=== PATIENT | female | born 1950 | race Caucasian/White ===

== ENCOUNTER 2022-12-07 04:57 | Inpatient (IN) | payer OTHER, BC ==
[2022-12-07] MEDS ORDERED: ACETAMINOPHEN 325 MG TABLET (FP) PO PRN (11:33)
[2022-12-07] MEDS ORDERED: ONDANSETRON 4 MG/2 ML VIAL IVPUSH PRN ×2 (11:33→18:14)
[2022-12-07] MEDS ORDERED: LIDOCAINE HCL/PF 2% SDV 5ML VIAL ONE (11:39)
[2022-12-07] MEDS ORDERED: MIDAZOLAM HCL 2 MG/2 ML SINGLE DOSE VIAL ONE (11:40)
[2022-12-07] MEDS ORDERED: PROPOFOL 20 ML ONE (11:40)
[2022-12-07] MEDS ORDERED: ONDANSETRON 4 MG/2 ML VIAL ONE (11:56)
[2022-12-07] MEDS ORDERED: ceFAZolin SODIUM 1 GM VIAL ONE (12:01)
[2022-12-07] MEDS ORDERED: ceFAZolin SODIUM 1 GM VIAL IVPB ONE (12:02)
[2022-12-07] MEDS ORDERED: KETOROLAC TROMETHAMINE 30 MG/1 ML VIAL ONE (12:18)
[2022-12-07] MEDS ORDERED: MEPERIDINE HCL 25 MG/ML VIAL ONE (13:26)
[2022-12-07] MEDS ORDERED: ACETAMINOPHEN 1000 MG/100 ML BAG IVPB ONE ×2 (14:00→16:18)
[2022-12-07] MEDS ORDERED: ACETAMINOPHEN INJECTION 100 ML IVPB ONE (14:01)
[2022-12-07 14:56] LABS: HEMATOCRIT 36.7 % (32.4-45.2); HEMOGLOBIN 11.9 GM/dL (10.7-15.3); MCH 27.5 pg (25.7-33.7); MCHC 32.5 g/dl (32.0-36.0); MEAN CELL VOLUME 84.6 fl (80-96); MEAN PLT VOLUME 10.3 fl (7.5-11.1); PLATELET COUNT 192 10^3/uL (134-434); RBC 4.33 M/mm3 (3.60-5.2); RDW 14.6 % (11.6-15.6)
[2022-12-07 15:03] LABS: ALBUMIN 3.1 g/dl (3.4-5.0); BLOOD UREA NITROGEN 48.9 mg/dL (7-18); CALCIUM 9.1 mg/dL (8.5-10.1)
[2022-12-07 15:07] LABS: BILIRUBIN,TOTAL 0.4 mg/dL (0.2-1); CREATININE 1.8 mg/dL (0.55-1.3)
[2022-12-07 15:08] LABS: TOT PROT 6.8 g/dl (6.4-8.2)
[2022-12-07 15:36] LABS: ANISOCYTOSIS 0; MACROCYTOSIS 0
[2022-12-07 15:59] LABS: HEMATOCRIT 32.1 % (32.4-45.2); HEMOGLOBIN 10.7 GM/dL (10.7-15.3); MCH 28.1 pg (25.7-33.7); MCHC 33.4 g/dl (32.0-36.0); MEAN CELL VOLUME 84.2 fl (80-96); MEAN PLT VOLUME 9.9 fl (7.5-11.1); PLATELET COUNT 176 10^3/uL (134-434); RBC 3.81 M/mm3 (3.60-5.2); WHITE BLOOD COUNT 2.1 K/mm3 (4.0-10.0)
[2022-12-07] MEDS ORDERED: MEPERIDINE HCL 25 MG/ML VIAL IVPUSH ONE (16:19)
[2022-12-07 16:31] LABS: ANISOCYTOSIS 0; HELMET CELLS 0; HOWELL-JOLLY BODIES 0; MACROCYTOSIS 0; OVALOCYTE 0; ROULEAU 0; SICKELED CELLS 0; TARGET CELLS 0; TEAR DROP CELLS 0; TOXIC GRANULATION 0
[2022-12-07] MEDS: LACTATED RINGERS SOLUTION 1,000 ML IV SCH (18:51)
[2022-12-07] MEDS: PIPERACILLIN/TAZOB 3.375 GM 3.375 GM in DEXTROSE 5%-WATER - 50 ML IVPB SCH (18:52)
[2022-12-07] MEDS: INSULIN SLIDING SCALE (NOVOLOG) 1 VIAL SQ SCH (21:41)
[2022-12-07] MEDS: oxyCODONE HCL 5 MG TABLET PO PRN (21:54)
[2022-12-08] MEDS ORDERED: LACTATED RINGERS SOLUTION 1,000 ML/1,000 ML INFUS.BAG IV STA (00:55)
[2022-12-08] MEDS: PIPERACILLIN/TAZOB 3.375 GM 3.375 GM in DEXTROSE 5%-WATER - 50 ML IVPB SCH (02:43)
[2022-12-08] MEDS: LACTATED RINGERS SOLUTION 1,000 ML IV SCH (02:44)
[2022-12-08] MEDS: ACETAMINOPHEN 1000 MG/100 ML BAG IVPB PRN ×2 (02:46→22:13)
[2022-12-08 04:47] LABS: EPI CELLS 7 /uL (0-25.1); HYALINE CASTS 0 /uL (0-3.1); URINE APPEARANCE TURBID; URINE BILIRUBIN NEGATIVE (NEGATIVE); URINE COLOR ORANGE; URINE GLUCOSE (UA) 2+ (NEGATIVE); URINE KETONE TRACE (NEGATIVE); URINE LEUK ESTERASE 3+ (NEGATIVE); URINE NITRITE NEGATIVE (NEGATIVE); URINE PROTEIN 2+ (NEGATIVE); URINE RBC 8895 /uL (0-23.9); URINE WBC 1131 /uL (0-25.8)
[2022-12-08] MEDS: INSULIN SLIDING SCALE (NOVOLOG) 1 VIAL SQ SCH ×4 (06:16→22:45)
[2022-12-08] MEDS: oxyCODONE HCL 5 MG TABLET PO PRN ×3 (07:39→17:09)
[2022-12-08] MEDS ORDERED: TAMSULOSIN HCL 0.4 MG CAP PO SCH (08:30)
[2022-12-08 08:39] LABS: URINE BACTERIA 7.6 /uL (0-1359)
[2022-12-08 09:31] LABS: HEMATOCRIT 29.6 % (32.4-45.2); HEMOGLOBIN 9.7 GM/dL (10.7-15.3); MCH 28.1 pg (25.7-33.7); MCHC 32.9 g/dl (32.0-36.0); MEAN CELL VOLUME 85.4 fl (80-96); MEAN PLT VOLUME 10.5 fl (7.5-11.1); PLATELET COUNT 117 10^3/uL (134-434); RBC 3.47 M/mm3 (3.60-5.2); RDW 14.6 % (11.6-15.6); WHITE BLOOD COUNT 26.2 K/mm3 (4.0-10.0)
[2022-12-08] MEDS ORDERED: PIPERACILLIN/TAZOB 4.5 GM 4.5 GM in DEXTROSE 5%-WATER - 50 ML IVPB SCH (10:00)
[2022-12-08] MEDS ORDERED: CEFEPIME HCL/D5W 1 GM/50 ML BAG IVPB SCH (10:00)
[2022-12-08 10:09] LABS: CALCIUM 7.9 mg/dL (8.5-10.1)
[2022-12-08 10:10] LABS: BLOOD UREA NITROGEN 62.5 mg/dL (7-18); MAGNESIUM 1.2 mg/dL (1.8-2.4)
[2022-12-08 10:13] LABS: CREATININE 3.1 mg/dL (0.55-1.3); PHOSPHOROUS 3.1 mg/dL (2.5-4.9)
[2022-12-08 10:14] LABS: BILIRUBIN,TOTAL 0.7 mg/dL (0.2-1); TOT PROT 5.5 g/dl (6.4-8.2)
[2022-12-08 10:15] LABS: ANISOCYTOSIS 0; MACROCYTOSIS 0
[2022-12-08 10:21] LABS: ALBUMIN 2.4 g/dl (3.4-5.0)
[2022-12-08] MEDS: metoPROLOL SUCCINATE 25 MG TAB.SR.24H (FP) PO SCH ×2 (10:55→11:48)
[2022-12-08] MEDS: TICAGRELOR 90 MG TABLET PO SCH ×2 (10:55→23:44)
[2022-12-08] MEDS: ASPIRIN COATED 81 MG TABLET.EC PO SCH (10:55)
[2022-12-08] MEDS: LOSARTAN POTASSIUM 25 MG TABLET PO SCH ×2 (10:55→11:48)
[2022-12-08] MEDS: amLODIPine BESYLATE 10 MG TABLET (FP) PO SCH ×2 (10:55→11:48)
[2022-12-08] MEDS ORDERED: PIPERACILLIN/TAZOB 4.5 GM 4.5 GM in DEXTROSE 5%-WATER 100 ML IVPB SCH ×2 (10:55→11:00)
[2022-12-08] MEDS ORDERED: SODIUM CHLORIDE 1,000 ML IV STA ×2 (11:16→15:34)
[2022-12-08 11:32] LABS: HEMOGLOBIN 10.6 GM/dL (10.7-15.3); MCH 27.2 pg (25.7-33.7); MEAN CELL VOLUME 84.9 fl (80-96); MEAN PLT VOLUME 10.8 fl (7.5-11.1); PLATELET COUNT 131 10^3/uL (134-434); RBC 3.88 M/mm3 (3.60-5.2); RDW 14.9 % (11.6-15.6)
[2022-12-08] MEDS ORDERED: SODIUM CHLORIDE 1,000 ML IV SCH (11:45)
[2022-12-08] MEDS ORDERED: MAGNESIUM SULFATE IN WATER 2 GM/50 ML IVPB IVPB ONE ×2 (12:00→15:45)
[2022-12-08 12:19] LABS: ANISOCYTOSIS 0; MACROCYTOSIS 0
[2022-12-08] MEDS: PIPERACILLIN/TAZOB 2.25 GM 2.25 GM in DEXTROSE 5%-WATER - 50 ML IVPB SCH ×3 (15:24→22:13)
[2022-12-08] MEDS: POLYETHYLENE GLYCOL (HEALTHYLAX) 3350 17 GM PACKET PO SCH (15:44)
[2022-12-08] MEDS ORDERED: metoPROLOL SUCCINATE 25 MG TAB.SR.24H (FP) PO SCH (15:50)
[2022-12-08] MEDS ORDERED: LACTATED RINGERS SOLUTION 1,000 ML/1,000 ML INFUS.BAG IV SCH (17:00)
[2022-12-08] MEDS: LIDOCAINE 5% TOPICAL PATCH TP SCH (17:09)
[2022-12-08] MEDS ORDERED: LACTATED RINGERS SOLUTION 1000 ML INFUS.BAG IV ONE (19:48)
[2022-12-08 21:56] LABS: CALCIUM 7.2 mg/dL (8.5-10.1)
[2022-12-08 21:57] LABS: ALBUMIN 2.2 g/dl (3.4-5.0); BLOOD UREA NITROGEN 69.1 mg/dL (7-18)
[2022-12-08 22:00] LABS: CREATININE 3.4 mg/dL (0.55-1.3)
[2022-12-08 22:02] LABS: TOT PROT 5.4 g/dl (6.4-8.2)
[2022-12-08] MEDS: SODIUM BICARBONATE 650 MG TABLET PO SCH (22:13)
[2022-12-08] MEDS: MELATONIN 5 MG TABLETS PO PRN (22:13)
[2022-12-08] MEDS: LIDOCAINE PATCH REMOVAL MC SCH (23:45)
[2022-12-09] MEDS: PIPERACILLIN/TAZOB 2.25 GM 2.25 GM in DEXTROSE 5%-WATER - 50 ML IVPB SCH ×2 (02:34→10:20)
[2022-12-09] MEDS: INSULIN SLIDING SCALE (NOVOLOG) 1 VIAL SQ SCH ×4 (06:35→23:00)
[2022-12-09] MEDS: PIPERACILLIN/TAZOB 3.375 GM 3.375 GM in DEXTROSE 5%-WATER - 50 ML IVPB SCH ×2 (07:10→07:12)
[2022-12-09 09:06] LABS: HEMATOCRIT 27.2 % (32.4-45.2); HEMOGLOBIN 9.1 GM/dL (10.7-15.3); MCH 27.9 pg (25.7-33.7); MCHC 33.5 g/dl (32.0-36.0); MEAN CELL VOLUME 83.4 fl (80-96); PLATELET COUNT 91 10^3/uL (134-434); RBC 3.26 M/mm3 (3.60-5.2); RDW 14.5 % (11.6-15.6)
[2022-12-09 09:31] LABS: LACTIC ACID 2.8 mmol/L (0.4-2.0)
[2022-12-09 09:36] LABS: WHITE BLOOD COUNT 31.3 K/mm3 (4.0-10.0)
[2022-12-09 09:37] LABS: BLOOD UREA NITROGEN 80.4 mg/dL (7-18); CALCIUM 7.7 mg/dL (8.5-10.1)
[2022-12-09 09:38] LABS: ALBUMIN 2.2 g/dl (3.4-5.0)
[2022-12-09 09:40] LABS: CREATININE 3.7 mg/dL (0.55-1.3)
[2022-12-09 09:42] LABS: BILIRUBIN,TOTAL 1.2 mg/dL (0.2-1); TOT PROT 5.2 g/dl (6.4-8.2)
[2022-12-09] MEDS: LIDOCAINE 5% TOPICAL PATCH TP SCH (10:18)
[2022-12-09] MEDS: ACETAMINOPHEN 1000 MG/100 ML BAG IVPB PRN ×2 (10:19→21:10)
[2022-12-09] MEDS: TICAGRELOR 90 MG TABLET PO SCH (10:21)
[2022-12-09] MEDS: ASPIRIN COATED 81 MG TABLET.EC PO SCH (10:21)
[2022-12-09] MEDS: POLYETHYLENE GLYCOL (HEALTHYLAX) 3350 17 GM PACKET PO SCH (10:21)
[2022-12-09] MEDS: SODIUM BICARBONATE 650 MG TABLET PO SCH ×2 (10:22→22:51)
[2022-12-09] MEDS: SODIUM CHLORIDE 1,000 ML IV SCH ×2 (10:30→21:17)
[2022-12-09] MEDS ORDERED: MEROPENEM 1 GM in DEXTROSE 5%-WATER 100 ML IVPB ONE (10:52)
[2022-12-09 11:19] LABS: ANISOCYTOSIS 0; HELMET CELLS 0; HOWELL-JOLLY BODIES 0; MACROCYTOSIS 0; OVALOCYTE 0; ROULEAU 0; SICKELED CELLS 0; TARGET CELLS 0; TEAR DROP CELLS 0; TOXIC GRANULATION 0
[2022-12-09] MEDS ORDERED: INSULIN (NOVOLOG) ASPART 100 UNITS/ML 10ML VIAL ONE (22:38)
[2022-12-09] MEDS: LIDOCAINE PATCH REMOVAL MC SCH (22:51)
[2022-12-09] MEDS: MELATONIN 5 MG TABLETS PO PRN (22:51)
[2022-12-09] MEDS: TICAGRELOR 60 MG TABLET PO SCH (22:51)
[2022-12-10] MEDS: ACETAMINOPHEN 1000 MG/100 ML BAG IVPB PRN ×2 (05:49→16:45)
[2022-12-10] MEDS: INSULIN SLIDING SCALE (NOVOLOG) 1 VIAL SQ SCH ×4 (06:17→22:19)
[2022-12-10 08:54] LABS: HEMATOCRIT 27.1 % (32.4-45.2); HEMOGLOBIN 8.9 GM/dL (10.7-15.3); MCH 27.3 pg (25.7-33.7); MCHC 32.8 g/dl (32.0-36.0); MEAN CELL VOLUME 83.3 fl (80-96); MEAN PLT VOLUME 10.8 fl (7.5-11.1); PLATELET COUNT 83 10^3/uL (134-434); RBC 3.25 M/mm3 (3.60-5.2); RDW 15.1 % (11.6-15.6)
[2022-12-10 09:11] LABS: WHITE BLOOD COUNT 39.1 K/mm3 (4.0-10.0)
[2022-12-10] MEDS: LIDOCAINE 5% TOPICAL PATCH TP SCH (09:14)
[2022-12-10] MEDS: SODIUM CHLORIDE 1,000 ML IV SCH ×2 (09:15→16:48)
[2022-12-10] MEDS: TICAGRELOR 60 MG TABLET PO SCH ×2 (09:15→22:14)
[2022-12-10] MEDS: ASPIRIN COATED 81 MG TABLET.EC PO SCH (09:15)
[2022-12-10] MEDS: SODIUM BICARBONATE 650 MG TABLET PO SCH ×2 (09:15→22:14)
[2022-12-10 09:31] LABS: BLOOD UREA NITROGEN 82.1 mg/dL (7-18)
[2022-12-10 09:34] LABS: CREATININE 3.4 mg/dL (0.55-1.3)
[2022-12-10 09:35] LABS: BILIRUBIN,TOTAL 0.9 mg/dL (0.2-1); TOT PROT 4.8 g/dl (6.4-8.2)
[2022-12-10] MEDS ORDERED: TICAGRELOR 90 MG TABLET PO SCH ×2 (10:00)
[2022-12-10] MEDS ORDERED: MEROPENEM 1 GM in DEXTROSE 5%-WATER 100 ML IVPB SCH (11:00)
[2022-12-10 11:02] LABS: ANISOCYTOSIS 0; HELMET CELLS 0; HOWELL-JOLLY BODIES 0; MACROCYTOSIS 0; OVALOCYTE 0; ROULEAU 0; SICKELED CELLS 0; TARGET CELLS 0; TEAR DROP CELLS 0; TOXIC GRANULATION 0
[2022-12-10] MEDS: CEFTRIAXONE 2 GM in DEXTROSE 5%-WATER 100 ML IVPB SCH (17:24)
[2022-12-10] MEDS ORDERED: INSULIN (NOVOLOG) ASPART 100 UNITS/ML 10ML VIAL ONE (17:31)
[2022-12-10] MEDS ORDERED: INSULIN (LEVEMIR) 100 UNITS/ML UNITS SQ ONE (17:31)
[2022-12-10] MEDS ORDERED: SODIUM CHLORIDE NASAL SPRAY 44 ML BOTTLE NS PRN (21:27)
[2022-12-10] MEDS: LIDOCAINE PATCH REMOVAL MC SCH (22:14)
[2022-12-11] MEDS: SODIUM CHLORIDE 1,000 ML IV SCH ×2 (06:27→08:30)
[2022-12-11] MEDS: INSULIN SLIDING SCALE (NOVOLOG) 1 VIAL SQ SCH ×4 (06:29→21:53)
[2022-12-11] MEDS ORDERED: SODIUM CHLORIDE 1,000 ML IV SCH (09:10)
[2022-12-11 09:24] LABS: HEMATOCRIT 31.2 % (32.4-45.2); HEMOGLOBIN 10.1 GM/dL (10.7-15.3); MCH 27.3 pg (25.7-33.7); MCHC 32.2 g/dl (32.0-36.0); MEAN CELL VOLUME 84.6 fl (80-96); MEAN PLT VOLUME 11.5 fl (7.5-11.1); PLATELET COUNT 90 10^3/uL (134-434); RBC 3.69 M/mm3 (3.60-5.2); RDW 15.5 % (11.6-15.6)
[2022-12-11] MEDS: ASPIRIN COATED 81 MG TABLET.EC PO SCH (09:45)
[2022-12-11] MEDS: TICAGRELOR 60 MG TABLET PO SCH ×2 (09:46→21:47)
[2022-12-11] MEDS: SODIUM BICARBONATE 650 MG TABLET PO SCH ×2 (09:46→21:47)
[2022-12-11] MEDS: LIDOCAINE 5% TOPICAL PATCH TP SCH (09:46)
[2022-12-11 09:51] LABS: ALBUMIN 2.2 g/dl (3.4-5.0); CALCIUM 8.5 mg/dL (8.5-10.1)
[2022-12-11 09:53] LABS: WHITE BLOOD COUNT 33.6 K/mm3 (4.0-10.0)
[2022-12-11 09:56] LABS: BILIRUBIN,TOTAL 0.5 mg/dL (0.2-1); TOT PROT 5.4 g/dl (6.4-8.2)
[2022-12-11 10:02] LABS: BLOOD UREA NITROGEN 72.1 mg/dL (7-18); CREATININE 2.7 mg/dL (0.55-1.3)
[2022-12-11 10:48] LABS: ANISOCYTOSIS 0; MACROCYTOSIS 0
[2022-12-11] MEDS: CEFTRIAXONE 2 GM in DEXTROSE 5%-WATER 100 ML IVPB SCH (17:17)
[2022-12-11] MEDS ORDERED: INSULIN (LEVEMIR) 100 UNITS/ML UNITS SQ ONE (19:01)
[2022-12-11] MEDS ORDERED: INSULIN (NOVOLOG) ASPART 100 UNITS/ML 10ML VIAL ONE (19:01)
[2022-12-11] MEDS: LIDOCAINE PATCH REMOVAL MC SCH (21:47)
[2022-12-11] MEDS: MELATONIN 5 MG TABLETS PO PRN (21:55)
[2022-12-12 05:20] LABS: KAPPA/LAMBDA RATIO, UR 3.09 (1.83-14.26)
[2022-12-12] MEDS: INSULIN SLIDING SCALE (NOVOLOG) 1 VIAL SQ SCH ×4 (06:49→22:53)
[2022-12-12 08:56] LABS: HEMATOCRIT 30.5 % (32.4-45.2); HEMOGLOBIN 9.8 GM/dL (10.7-15.3); MCH 27.1 pg (25.7-33.7); MCHC 32.2 g/dl (32.0-36.0); MEAN CELL VOLUME 84.1 fl (80-96); MEAN PLT VOLUME 11.6 fl (7.5-11.1); PLATELET COUNT 93 10^3/uL (134-434); RBC 3.63 M/mm3 (3.60-5.2); RDW 15.4 % (11.6-15.6); WHITE BLOOD COUNT 21.1 K/mm3 (4.0-10.0)
[2022-12-12 09:22] LABS: CALCIUM 8.7 mg/dL (8.5-10.1)
[2022-12-12 09:23] LABS: ALBUMIN 2.2 g/dl (3.4-5.0); BLOOD UREA NITROGEN 57.8 mg/dL (7-18); MAGNESIUM 2.1 mg/dL (1.8-2.4)
[2022-12-12 09:26] LABS: CREATININE 2.1 mg/dL (0.55-1.3); PHOSPHOROUS 2.7 mg/dL (2.5-4.9)
[2022-12-12 09:27] LABS: TOT PROT 5.4 g/dl (6.4-8.2)
[2022-12-12 09:28] LABS: BILIRUBIN,TOTAL 0.3 mg/dL (0.2-1)
[2022-12-12] MEDS: ASPIRIN COATED 81 MG TABLET.EC PO SCH (09:48)
[2022-12-12] MEDS: SODIUM BICARBONATE 650 MG TABLET PO SCH (09:48)
[2022-12-12] MEDS: LIDOCAINE 5% TOPICAL PATCH TP SCH (09:49)
[2022-12-12] MEDS: TICAGRELOR 60 MG TABLET PO SCH ×2 (10:01→22:49)
[2022-12-12 10:19] LABS: ANISOCYTOSIS 0; MACROCYTOSIS 0
[2022-12-12] MEDS ORDERED: MAG HYDROX/AL HYDROX/SIMETH 30 ML UNIT-DOSE CUP PO PRN (10:46)
[2022-12-12] MEDS: PANTOPRAZOLE 20 MG TABLET PO SCH (11:39)
[2022-12-12] MEDS: amLODIPine BESYLATE 10 MG TABLET (FP) PO SCH (13:34)
[2022-12-12] MEDS: metoPROLOL SUCCINATE 25 MG TAB.SR.24H (FP) PO SCH (13:34)
[2022-12-12 15:07] LABS: TOTAL PROTEIN, URINE 85.3 mg/dL (Not Estab.)
[2022-12-12] MEDS ORDERED: ACETAMINOPHEN 500 MG TABLET (FP) PO PRN (15:30)
[2022-12-12] MEDS: CEFTRIAXONE 2 GM in DEXTROSE 5%-WATER 100 ML IVPB SCH (17:02)
[2022-12-12] MEDS ORDERED: INSULIN (LEVEMIR) 100 UNITS/ML UNITS SQ ONE (18:04)
[2022-12-12] MEDS: INSULIN (NOVOLOG) ASPART 100 UNITS/ML 10ML VIAL SQ SCH (18:26)
[2022-12-12] MEDS: LIDOCAINE PATCH REMOVAL MC SCH (22:49)
[2022-12-12] MEDS: INSULIN (LEVEMIR) 100 UNITS/ML UNITS SQ SCH (22:54)
[2022-12-13] MEDS: INSULIN (LEVEMIR) 100 UNITS/ML UNITS SQ SCH ×2 (06:37→22:22)
[2022-12-13] MEDS: INSULIN SLIDING SCALE (NOVOLOG) 1 VIAL SQ SCH ×4 (06:37→22:34)
[2022-12-13] MEDS: INSULIN (NOVOLOG) ASPART 100 UNITS/ML 10ML VIAL SQ SCH ×3 (06:38→16:34)
[2022-12-13] MEDS ORDERED: INSULIN (LEVEMIR) 100 UNITS/ML UNITS SQ ONE (07:01)
[2022-12-13] MEDS ORDERED: INSULIN (NOVOLOG) ASPART 100 UNITS/ML 10ML VIAL ONE (07:01)
[2022-12-13] MEDS: LIDOCAINE 5% TOPICAL PATCH TP SCH (09:47)
[2022-12-13] MEDS: TICAGRELOR 60 MG TABLET PO SCH ×2 (09:49→22:22)
[2022-12-13] MEDS: FUROSEMIDE 20 MG TABLET (FP) PO SCH (09:49)
[2022-12-13] MEDS: metoPROLOL SUCCINATE 25 MG TAB.SR.24H (FP) PO SCH (09:49)
[2022-12-13] MEDS: PANTOPRAZOLE 20 MG TABLET PO SCH (09:49)
[2022-12-13] MEDS: amLODIPine BESYLATE 10 MG TABLET (FP) PO SCH (09:49)
[2022-12-13] MEDS: ASPIRIN COATED 81 MG TABLET.EC PO SCH (09:49)
[2022-12-13 09:53] LABS: HEMATOCRIT 28.9 % (32.4-45.2); HEMOGLOBIN 9.7 GM/dL (10.7-15.3); MCHC 33.6 g/dl (32.0-36.0); MEAN CELL VOLUME 83.2 fl (80-96); MEAN PLT VOLUME 10.5 fl (7.5-11.1); PLATELET COUNT 111 10^3/uL (134-434); RBC 3.48 M/mm3 (3.60-5.2); RDW 14.9 % (11.6-15.6); WHITE BLOOD COUNT 17.7 K/mm3 (4.0-10.0)
[2022-12-13 10:15] LABS: CALCIUM 8.7 mg/dL (8.5-10.1)
[2022-12-13 10:16] LABS: ALBUMIN 2.3 g/dl (3.4-5.0)
[2022-12-13 10:19] LABS: CREATININE 1.6 mg/dL (0.55-1.3)
[2022-12-13 10:20] LABS: BILIRUBIN,TOTAL 0.3 mg/dL (0.2-1); TOT PROT 5.5 g/dl (6.4-8.2)
[2022-12-13 11:36] LABS: ANISOCYTOSIS 0; MACROCYTOSIS 0
[2022-12-13] MEDS: CEFTRIAXONE 2 GM in DEXTROSE 5%-WATER 100 ML IVPB SCH (17:04)
[2022-12-13] MEDS: LIDOCAINE PATCH REMOVAL MC SCH (22:22)
[2022-12-14] MEDS: INSULIN (LEVEMIR) 100 UNITS/ML UNITS SQ SCH ×2 (06:26→23:23)
[2022-12-14] MEDS: INSULIN (NOVOLOG) ASPART 100 UNITS/ML 10ML VIAL SQ SCH ×3 (06:26→17:18)
[2022-12-14] MEDS: INSULIN SLIDING SCALE (NOVOLOG) 1 VIAL SQ SCH ×4 (06:27→23:24)
[2022-12-14 06:36] LABS: BASO % 0.5 % (0-2.0); EOS % 3.4 % (0-4.5); HEMATOCRIT 27.6 % (32.4-45.2); HEMOGLOBIN 9.2 GM/dL (10.7-15.3); LYMPH % 9.4 % (8-40); MCH 27.7 pg (25.7-33.7); MCHC 33.3 g/dl (32.0-36.0); MEAN CELL VOLUME 83.1 fl (80-96); MEAN PLT VOLUME 10.9 fl (7.5-11.1); MONO % 8.3 % (3.8-10.2); NEUT % 78.4 % (42.8-82.8); PLATELET COUNT 154 10^3/uL (134-434); RBC 3.32 M/mm3 (3.60-5.2); WHITE BLOOD COUNT 18.3 K/mm3 (4.0-10.0)
[2022-12-14 06:48] LABS: ALBUMIN 2.2 g/dl (3.4-5.0); CALCIUM 8.1 mg/dL (8.5-10.1)
[2022-12-14 06:49] LABS: BLOOD UREA NITROGEN 42.1 mg/dL (7-18)
[2022-12-14 06:52] LABS: CREATININE 1.5 mg/dL (0.55-1.3)
[2022-12-14 06:53] LABS: BILIRUBIN,TOTAL 0.3 mg/dL (0.2-1); TOT PROT 5.4 g/dl (6.4-8.2)
[2022-12-14] MEDS: metoPROLOL SUCCINATE 25 MG TAB.SR.24H (FP) PO SCH (10:29)
[2022-12-14] MEDS: LIDOCAINE 5% TOPICAL PATCH TP SCH (10:29)
[2022-12-14] MEDS: ASPIRIN COATED 81 MG TABLET.EC PO SCH (10:29)
[2022-12-14] MEDS: TICAGRELOR 60 MG TABLET PO SCH ×2 (10:29→22:36)
[2022-12-14] MEDS: amLODIPine BESYLATE 10 MG TABLET (FP) PO SCH (10:29)
[2022-12-14] MEDS: PANTOPRAZOLE 20 MG TABLET PO SCH (10:29)
[2022-12-14] MEDS: FUROSEMIDE 20 MG TABLET (FP) PO SCH (10:29)
[2022-12-14] MEDS: CHOLECALCIFEROL (VIT D3) 1,000 UNIT (25 MCG) TABLET PO SCH (10:33)
[2022-12-14 10:49] LABS: ANISOCYTOSIS 0; MACROCYTOSIS 0
[2022-12-14 13:00] VITALS: BMI 32.5
[2022-12-14] MEDS ORDERED: FUROSEMIDE 20 MG TABLET (FP) PO ONE (14:00)
[2022-12-14] MEDS: LIDOCAINE PATCH REMOVAL MC SCH (22:41)
[2022-12-15] MEDS: INSULIN SLIDING SCALE (NOVOLOG) 1 VIAL SQ SCH ×2 (06:52→12:05)
[2022-12-15] MEDS: INSULIN (NOVOLOG) ASPART 100 UNITS/ML 10ML VIAL SQ SCH ×2 (06:53→12:05)
[2022-12-15] MEDS: INSULIN (LEVEMIR) 100 UNITS/ML UNITS SQ SCH (06:53)
[2022-12-15] MEDS: PANTOPRAZOLE 20 MG TABLET PO SCH (09:44)
[2022-12-15] MEDS: ASPIRIN COATED 81 MG TABLET.EC PO SCH (09:44)
[2022-12-15] MEDS: metoPROLOL SUCCINATE 25 MG TAB.SR.24H (FP) PO SCH (09:44)
[2022-12-15] MEDS: FUROSEMIDE 20 MG TABLET (FP) PO SCH (09:44)
[2022-12-15] MEDS: amLODIPine BESYLATE 10 MG TABLET (FP) PO SCH (09:45)
[2022-12-15] MEDS: LIDOCAINE 5% TOPICAL PATCH TP SCH (09:45)
[2022-12-15] MEDS: CHOLECALCIFEROL (VIT D3) 1,000 UNIT (25 MCG) TABLET PO SCH (09:45)
[2022-12-15] MEDS: TICAGRELOR 60 MG TABLET PO SCH (09:48)
[2022-12-15 11:21] VITALS: BP 152/68; PULSE 86; RESP 18; TEMP 97.8
== END 2022-12-15 11:23 | disposition home or self-care (01) | DRG 659 ==
LOC: SUATTDRO 04:57 → JASU-SURG 04:57 → J7W 18:11
PROVIDERS: ADMIT Internal Medicine
PROC: BT1DZZZ Fluoroscopy of Right Kidney, Ureter and Bladder (ICD-10-PCS; 2022-12-07)
PROC: 0T768DZ Dilation of Right Ureter with Intraluminal Device, Via Natural or Artificial Opening Endoscopic (ICD-10-PCS; principal; 2022-12-07 11:30)
PROC: 0TC68ZZ Extirpation of Matter from Right Ureter, Via Natural or Artificial Opening Endoscopic (ICD-10-PCS; 2022-12-07 11:30)
PROC: 0TP98DZ Removal of Intraluminal Device from Ureter, Via Natural or Artificial Opening Endoscopic (ICD-10-PCS; 2022-12-07 11:30)
DX: T83.593A Infection and inflammatory reaction due to other urinary stents, initial encounter (principal); A41.50 Gram-negative sepsis, unspecified; N20.1 Calculus of ureter; N17.9 Acute kidney failure, unspecified; I50.32 Chronic diastolic (congestive) heart failure; I13.0 Hypertensive heart and chronic kidney disease with heart failure and stage 1 through stage 4 chronic kidney disease, or unspecified chronic kidney disease; E87.20 Acidosis, unspecified; N18.4 Chronic kidney disease, stage 4 (severe); D72.819 Decreased white blood cell count, unspecified; D72.829 Elevated white blood cell count, unspecified; Y83.9 Surgical procedure, unspecified as the cause of abnormal reaction of the patient, or of later complication, without mention of misadventure at the time of the procedure; E78.5 Hyperlipidemia, unspecified; I25.10 Atherosclerotic heart disease of native coronary artery without angina pectoris; Z95.5 Presence of coronary angioplasty implant and graft; D69.6 Thrombocytopenia, unspecified; E11.9 Type 2 diabetes mellitus without complications; K59.00 Constipation, unspecified
CPT/HCPCS: 36415; 71045-TC-FY; 74176-TC; 76000-TC-FY; 76775-TC; 80053; 81003; 82306; 82570; 82962; 83605; 83735; 83883; 84100; 84155; 84156; 84157; 84165; 84300; 84540; 85025; 86038; 86160; 87040; 87086; 87186; 87324; 87449; 88300-TC; 93005; 93010; 94760; 97116-GP; 97161-GP; C1747; C1758; C1769; C2617; C9803-CS; U0003; U0005

== ENCOUNTER 2024-10-27 04:47 | Day surgery (SDC) | payer OTHER, BC ==
[2024-10-24 12:57] VITALS: BMI 31.2
[2024-10-27 10:34] VITALS: TEMP 98.7
[2024-10-27 11:13] VITALS: BP 161/59; PULSE 70; RESP 19
== END 2024-10-27 11:15 | disposition home or self-care (01) ==
LOC: JASU-ENDO 04:47
PROVIDERS: ATTEND Internal Medicine Gastroenterology
PROC: 0DB98ZX Excision of Duodenum, Via Natural or Artificial Opening Endoscopic, Diagnostic (ICD-10-PCS; 2024-10-27)
PROC: 0DB78ZX Excision of Stomach, Pylorus, Via Natural or Artificial Opening Endoscopic, Diagnostic (ICD-10-PCS; 2024-10-27)
PROC: 0DB68ZX Excision of Stomach, Via Natural or Artificial Opening Endoscopic, Diagnostic (ICD-10-PCS; 2024-10-27)
PROC: 0DB48ZX Excision of Esophagogastric Junction, Via Natural or Artificial Opening Endoscopic, Diagnostic (ICD-10-PCS; 2024-10-27)
PROC: 0DJD8ZZ Inspection of Lower Intestinal Tract, Via Natural or Artificial Opening Endoscopic (ICD-10-PCS; principal; 2024-10-27 09:30)
DX: Z12.11 Encounter for screening for malignant neoplasm of colon (principal); K57.30 Diverticulosis of large intestine without perforation or abscess without bleeding; K64.8 Other hemorrhoids; K59.09 Other constipation; K44.9 Diaphragmatic hernia without obstruction or gangrene; K31.7 Polyp of stomach and duodenum; K21.00 Gastro-esophageal reflux disease with esophagitis, without bleeding; K29.80 Duodenitis without bleeding; K29.50 Unspecified chronic gastritis without bleeding
CPT/HCPCS: 43239; G0121; 82962; 88305-TC; 88342-TC